=== PATIENT | male | born 1960 | race Caucasian/White ===

== ENCOUNTER → 2023-09-05 09:10 | Outpatient (REF) | payer BC, SELFPAY | LOC: HWRAD 09:10 | PROVIDERS: ATTENDING PHYSICIAN Internal Medicine Interventional Cardiology; FAMILY PHYSICIAN Physician Assistant Medical | DX: I10 Essential (primary) hypertension (principal); Q23.1 Congenital insufficiency of aortic valve | CPT/HCPCS: 71275; Q9967 ==

== ENCOUNTER → 2024-09-01 08:21 | Outpatient (REF) | payer BC, SELFPAY | LOC: HWRCS 08:21 | PROVIDERS: ATTENDING PHYSICIAN Internal Medicine Interventional Cardiology; FAMILY PHYSICIAN Physician Assistant Medical | DX: Q23.1 Congenital insufficiency of aortic valve (principal) | CPT/HCPCS: 93306 ==